=== PATIENT | female | born 1975 | race Caucasian/White ===

== ENCOUNTER 2024-09-19 11:37 | Outpatient (CLI) | payer OTHER, SELFPAY ==
--- NOTE | 2024-09-19 11:30 | ECG_ITS ---
Test Date: 2024-09-19 12:14:58 Measurements Intervals [place] Rate: 41 P: 15 WY: 152 QRS: -13 QRSD: 89 T: -4 QT: 388 QTc: 321 Interpretive Statements SINUS BRADYCARDIA WITH MARKED RHYTHM IRREGULARITY, POSSIBLE NON-CONDUCTED PAC, SA BLOCK, AV BLOCK, OR SINUS PAUSE LOW QRS VOLTAGE IN PRECORDIAL LEADS [QRS DEFLECTION < 1.0 mV IN CHEST LEADS] MODERATE VOLTAGE CRITERIA FOR LVH, CONSIDER NORMAL VARIANT [MEETS CRITERIA IN ONE OF: R(aVL), S(V1), R(V5), R(V5/V6)+S(V1)] POSSIBLE ANTERIOR MYOCARDIAL INFARCTION [30 ms Q WAVE IN V3/V4, OR R < 0.2 mV IN V4], OF INDETERMINATE AGE WARNING: DATA QUALITY MAY AFFECT INTERPRETATION No previous ECG available for comparison Electronically Signed On 09-19-2024 15:33:37 JV BASEBALL COACH by Bernard Ayon M.D.
[2024-09-19 12:24] LABS: Basophils Absolute Auto 0.1 K/mm3 (0.0-0.1); Basophils Percent Auto 0.9 % (0.2-1.2); Eosinophils Absolute Auto 0.1 K/mm3 (0-0.3); Eosinophils Percent Auto 0.9 % (0-4.4); Hematocrit 42.7 % (37.0-47.0); Hemoglobin 13.9 g/dL (12.0-15.0); Immature Granulocyte Absolute 0.04 K/mm3 (0.00-0.031); Immature Granulocyte Percent A 0.5 % (0-0.5); Lymphocytes Absolute Auto 2.15 K/mm3 (0.9-3.2); Lymphocytes Percent Auto 27.5 % (18.3-44.2); Mean Corpuscular HGB Conc 32.6 g/dl (32-36); Mean Corpuscular Hemoglobin 31.1 pg (26-34); Mean Corpuscular Volume 95.5 fl (80-100); Mean Platelet Volume 10.5 fl (7.4-10.4); Monocytes Absolute Auto 0.4 K/mm3 (0.1-0.6); Monocytes Percent Auto 5.6 % (2.6-8.5); Neutrophils Absolute Auto 5.1 K/mm3 (1.3-6.7); Neutrophils Percent Auto 64.6 % (45.5-73.1); Platelet Count Result 275 k/mm3 (150-375); Red Blood Count 4.47 M/mm3 (4.2-5.4); Red Cell Distribution Width 14.4 % (11.5-14.5); White Blood Count 7.8 K/mm3 (4.5-10.0)
[2024-09-19 12:38] LABS: Albumin Level 4.2 g/dL (3.5-5.1); Anion Gap 7 mmol/L (4-12); Blood Urea Nitrogen 17 mg/dL (7-17); Calcium 8.9 mg/dL (8.4-10.2); Carbon Dioxide 28 mmol/L (22-30); Chloride 104 mmol/L (98-107); Estimated Glomerular Filt Rate > 60; Glucose 92 mg/dL (65-110); Potassium 4.3 mmol/L (3.4-5.0); Sodium 139 mmol/L (137-145)
[2024-09-19 15:17] LABS: Iron 106 ug/dL (37-170)
[2024-09-19 17:02] LABS: Prealbumin 34.3 mg/dL (17.6-36.0)
[2024-09-19 19:39] LABS: Hemoglobin A1C 5.7 % (<5.7)
[2024-09-23 10:24] LABS: Vitamin B1 10 nmol/L (8-30)
== END 2024-09-19 11:38 | disposition home or self-care (01) ==
PROVIDERS: PCP Family Medicine; Visit Provider Surgery Plastic and Reconstructive Surgery
DX: Z01.810 Encounter for preprocedural cardiovascular examination (principal); R94.31 Abnormal electrocardiogram [ECG] [EKG]; E11.9 Type 2 diabetes mellitus without complications; L57.4 Cutis laxa senilis
CPT/HCPCS: 36415; 80048; 82040; 83036; 83540; 84134; 84425; 85025; 93005

== ENCOUNTER 2024-11-14 00:22 | Day surgery (SDC) | payer OTHER, SELFPAY ==
[2024-09-18 13:36] VITALS: BMI 30.6
--- NOTE | 2024-09-18 13:46 | PC.NURSE ---
Addendum entered by Jermain Whittaker RN 11/02/24 14:45: Patient reports no changes since preop interview. Informed to be here at 0600 on 11-14-2024 for surgery at 0730. Knows to stop vitamins and supplements on 11-11-2024. Original Note: Report to the Outpatient Waiting Room, entrance under the green pavilion located off [facility], at time _0700_ on date _[id number]_. Planned Procedure Time: _0900_.? Time changes happen often and if your time is changed the preop area will call you the afternoon before. - You and your visitor will be asked to self-screen and do not enter if you have any COVID symptoms. Please call surgeon if you need to reschedule. - A mask is optional within the hospital at this time. Patients may have clear liquids (water, carbonated beverages, clear teas, apple juice) until 3 hours prior to surgery with a maximum of 20 ounces. - No food from midnight until time of surgery and no smoking. This includes no chewing gum, candy or mints. Take only the following medications with a SIP of water on the morning of surgery: ___None DO NOT STOP ANY OF YOUR OTHER PRESCRIPTION MEDICATIONS PRIOR TO SURGERY EXCEPT THE FOLLOWING Medications to discontinue per physician __Vitamins and supplements___ Date to take last zxcq___[phone]____ Please no make-up, nail mozambican, hairspray, perfume, deodorant, or body powder the day of surgery.? No jewelry (including any body piercings) or valuables the day of surgery, leave them at home.? Please take a shower or bath the night before, or the morning of, surgery with an antibacterial soap.? Wear comfortable, loose fitting clothing.? - Jewelry must be removed prior to entering the operating room.? Rings and piercings that are not removed may be cut off. - The hospital will not accept responsibility for valuables.? - Please leave all valuables, including medications, at home the day of surgery. If you are going home after surgery, a licensed chain saw driver must drive you home.? - NO public transportation without another adult if you receive anesthesia. - We recommend that an adult stay with you for 24 hours following discharge. - We also recommend that you do not drive, make important decision, drink alcoholic beverages, or take any drugs that were not prescribed by your health care provider for at least 24 hours after your discharge time. Follow any additional instructions given to you from your surgeon. Telephone instructions given to __Delia__and asked if any additional questions and then verbalized understanding. Patient advised to call surgeon office or pre surgery nurse liaison [phone] if any additional questions.
[2024-11-14] VITALS (12 sets, daily range): BP systolic 112–145; BP diastolic 71–91; PULSE 70–97; RESP 14–20; TEMP 36.8–36.9; O2SAT 99–100; BMI 31.3
--- OUTSIDE RECORDS SUMMARY | 2024-11-14 00:24 | XMS_ITS | Clinical Summary ---
Author Organization [facility] Address [facility] [place] [address] Care Team Providers Care Ammonium Sulfate Operator Name Role Phone Don Huffman MD Primary Care Provider [phone] Social History Tobacco Use Types Packs/Day Years Used Date Smoking Tobacco: Never Assessed Comments Unknown Sex and Gender Information Value Date Recorded Sex Assigned at Not on file Legal Sex Female 1:01 PM CDT Gender Identity Not on file Sexual Orientation Not on file Plan of Treatment Health Maintenance Due Date Last Done Comments Colorectal Cancer Screening Colonoscopy (10 Years) 1973 Annual Physical 1976 Hepatitis C 1991 DTaP, Tdap and Td Vaccines ( 1 - Tdap) 1992 Hepatitis B Vaccines (1 of 3 - 19+ 3-dose series) 1992 Cervical Cancer Screening Pa p with HPV Testing (Age 30 to 64) Every 5 Years 2003 Zoster Vaccines (1 of 2) 2023 COVID-19 Vaccine (2023-2 5 season) 2024 06/22/2021, 06/01/2021 Influenza Adult (#1) 2024 Mammogram Screening 04/14/2026 04/14/2024 Cervical Cancer Screening Pa p Smear (Age 30 to 64) Every 3 Years 08/11/2027 08/11/2024, 02/02/2024, 08/13/2021 Cervical Cancer Screening wi th HPV 08/11/2027 Meningococcal B Vaccine Aged Out No l onger eligible based on patient's age to complete this topic Meningococcal Vaccine Aged Out No whit lida eligible based on patient's age to complete this topic Pneumococcal Vaccine: Pediatrics (0 to 5 Years) and At-Risk Patients (6 to 64 Years) Aged Out No longer eligible b ased on patient's age to complete this topic RSV Immunizations Under 20 Months Aged Out No longer eligible b ased on patient's age to complete this topic Insurance [facility] Care Teams Ammonium Sulfate Operator Relationship Specialty Start Date End Date Don Huffman MD [address] [place] [address] [address] [place] [id number] PCP - General FAMILY PRACTICE 03/15/19
--- OUTSIDE RECORDS SUMMARY | 2024-11-14 00:25 | XMS_ITS | Clinical Summary ---
Author Organization [facility] Address [address] [place] [address] Care Team Providers Care Exercise Scientist Name Role Phone Don Huffman MD Primary Care Provider [phone] Allergies No known active allergies Medications No known medications Active Problems No known active problems Encounters Date Type Department Care Team Description 11/11/2024 External Device Data [facility] ABSTRACTION Provider, Abstract 11/10/2024 External Device Data [facility] Provider, Abstract 11/07/2024 External Device Data [facility] Provider, Abstract 10/24/2024 External Device Data [facility] Provider, Abstract 10/02/2024 Telephone [facility] - [address] [facility] [address] [address] [facility] [address] [place] [address] Don Huffman MD new pt appt; 1st call, LMOR 10/02/24 10/02/2024 Abstract [facility] - [address] [facility] [address] [address] [facility] [address] [place] [address] Provider, Abstract 09/27/2024 External Device Data [facility]STRACTION Provider, Abstract 09/27/2024 External Device Data [facility] Provider, Abstract 09/20/2024 External Device Data [facility]CTION Provider, Abstract from Last 3 Months Social History Tobacco Use Types Packs/Day Years Used Date Smoking Tobacco: Never Smokeless Tobacco: Never Alcohol Use Standard Drinks/Week Comments Never 0 (1 standard drink = 0.6 oz pur e alcohol) Comments No Sex and Gender Information Value Date Recorded Sex Assigned at Not on file Legal Sex Female 1:16 PM COAL DELIVERER Gender Identity Not on file Sexual Orientation Not on file Last Filed Vital Signs Vital Sign Reading Time Taken Comments Blood Pressure 133/93 08/12/2020 2:55 PM COAL DELIVERER Pulse 66 08/12/2020 2:55 PM COAL DELIVERER Temperature 36.7 C (98.1 F) 08/12/2020 2:55 PM COAL DELIVERER Respiratory Rate 16 08/12/2020 2:55 PM COAL DELIVERER Oxygen Saturation 97% 08/12/2020 2:55 PM COAL DELIVERER Inhaled Oxygen Concentration - - Weight 95.3 kg (210 lb) 08/12/2020 2:55 PM COAL DELIVERER Height 170.2 cm (5' 7 ) 08/12/2020 2:55 PM COAL DELIVERER Body Mass Index 32.89 08/12/2020 2:55 PM COAL DELIVERER Plan of Treatment Health Maintenance Due Date Last Done Comments DTAP/TDAP/TD VACCINES (1 - Tdap) 1992 HEPATITIS B VACCINES (1 of 3 - 19+ 3-dose series) 1992 CERVICAL CANCER SCREENING 2003 COLORECTAL SCREENING 2018 Colorectal Cancer Screening 2018 FIT-DNA Q 3 years 2018 FIT/FOBT Q 1 year 2018 Flex Sig/CT Colonography Q 5 years 2018 BREAST CANCER SCREENING 01/16/2023 01/16/2022 ZOSTER VACCINE (1 of 2) 2023 INFLUENZA VACCINE (#1) 2024 COVID-19 Vaccine ( season) 2024, 06/01/2021 Insurance HMO [employer] NETWORK [facility] [id number] Care Teams Exercise Scientist Relationship Specialty Start Date End Date Don Huffman MD [address] [place] [address] [address] [place] [address] PCP - General Family Practice 10/02/24
--- OUTSIDE RECORDS SUMMARY | 2024-11-14 00:25 | XMS_ITS | Clinical Summary ---
Author Organization [facility] Address [address] [place] [address] Care Team Providers Care Director Of Business Services Name Role Phone Unavailable Primary Care Provider Unavailabl e Immunizations Immunization Administration Dates Next Due Covid-19, Mrna, Lnp-s, Pf, 30 Mcg/0.3 Ml Dose (P fizer) 06/22/2021,06/01/2021 Social History Tobacco Use Types Packs/Day Years Used Date Smoking Tobacco: Never Assessed Comments Unknown Sex and Gender Information Value Date Recorded Sex Assigned at Not on file Legal Sex Female 3:47 PM CDT Gender Identity Not on file Sexual Orientation Not on file Plan of Treatment Health Maintenance Due Date Last Done Comments Hepatitis C Virus (HCV) Screening 1973 TdaP Immunization 1973 Hepatitis B Immunization (1 of 3 - 19+ 3-dose series) 1992 Pap Smear 1994 Cervical Cancer Screening (CCS) 2003 HPV/Cotest 2003 Colonoscopy 2018 Colorectal Cancer Screening 2018 Cologuard 2023 Immunochemical Fecal Occult Blood 2023 Mammogram 2023 Pneumococcal Immunization (5 0+ years) (1 of 1 - PCV) 2023 Zoster Immunization (1 of 2) 2023 Influenza Immunization (#1) 2024 SARS-COV-2 Immunization (2 - 2023- season) 2024 06/22/2021, 06/01/2021 Respiratory Syncytial Virus (RSV) Immunization (Adult) (1 - 1-dose 75+ series) 2048 Meningococcal Immunization (ACWY) Aged Out No longer eligible b ased on patient's age to complete this topic Pneumococcal Immunization Combined Aged Out No longer eligible b ased on patient's age to complete this topic Rotavirus Immunization Aged Out No lo nger eligible based on patient's age to complete this topic
--- OUTSIDE RECORDS SUMMARY | 2024-11-14 00:25 | XMS_ITS | Clinical Summary ---
Author Organization [facility] Address [address] [place] [address] Care Team Providers Care Volunteer Services Specialist Name Role Phone Unavailable Primary Care Provider Unavailabl e Source Comments [facility],non-owned Affiliates and Associated Physician Practices is amultiple site organization consisting of ambulatory clinics and hospital sitesin [place], [place], [place] and [place]. This disclosure is being madepursuant to the Care Everywhere program and may not contain all information available regarding this patient. Last updated 18.[facility] Allergies No known active allergies Social History Tobacco Use Types Packs/Day Years Used Date Smoking Tobacco: Never Assessed Sex and Gender Information Value Date Recorded Sex Assigned at Not on file Gender Identity Not on file Sexual Orientation Not on file Plan of Treatment Health Maintenance Due Date Last Done Comments COLOGUARD (AGES 45-75) - COL ON CA SCREENING 1973 COLON MONITORING 1973 COLONOSCOPY - COLON CA SCREENING 1973 CT COLONOGRAPHY - COLON CA SCREENING 1973 Colorectal Cancer Screening 1973 FIT - COLON CA SCREENING 1973 FLEX SIG - COLON CA SCREENING 1973 LIPID TESTING 1973 MAMMOGRAM 1973 PAP SMEAR 1973 HIV SCREENING 1988 HEPATITIS C SCREENING 09/27/1991 DTAP/TDAP/TD VACCINES (1 - Tdap) 1992 HEPATITIS B VACCINE (1 of 3 - 19+ 3-dose series) 1992 PNEUMOCOCCAL VACCINE 50+ (1 of 1 - PCV) 2023 ZOSTER VACCINE (1 of 2) 2023 COVID-19 VACCINE (1 - 2023-2 5 season) 2024 INFLUENZA VACCINE (#1) 2024 DEPRESSION SCREENING 09/06/2024 HIB VACCINE Aged Out No longer eligi ble based on patient's age to complete this topic HPV VACCINE Aged Out No longer eligi ble based on patient's age to complete this topic MENINGOCOCCAL (Group B) VACCINE Aged Out No longer eligible based on patient's age to complete this topic MENINGOCOCCAL VACCINE Aged Out No whit lida eligible based on patient's age to complete this topic
--- OUTSIDE RECORDS SUMMARY | 2024-11-14 00:25 | XMS_ITS | Referral Summary ---
Author Organization [facility] Address [address] [place] [phone] Care Team Providers Care Principal Gifts Officer Name Role Phone Don Huffman MD Primary Care Provider [phone] Don Lopez DPM Unavailable [phone] Encounters Date Type Department Care Team Description 09/21/2024 Telephone [facility] Obstetrical Gynecology [address] [place] [phone] Pati Yeh LPN 09/13/2024 11:30 AM DATA ENGINEER Office Visit [facility] Obstetrical Gynecology [address] [place] [address] [place] [phone] Remy Baeza MD Low grade squamous intraepith lesion on cytologic smear cervix (lgsil) (Primary Dx); High risk HPV infection 09/07/2024 Telephone [facility] Obstetrical Gynecology [address] [place] [phone] Remy Baeza MD 09/01/2024 Telephone [facility] Obstetrical Gynecology [address] [place] [phone] Remy Baeza MD from Last 3 Months Allergies No known active allergies Medications sertraline (ZOLOFT) 50 mg tablet Take 1 tablet (50 mg total) by mouth every other day Active losartan (COZAAR) 50 mg tablet Take 1 tablet (50 mg total) by mouth daily 4 Active Eusebia 0.05 mg/24 hr APPLY 1 PATCH topcially TO stomach, upper arm, OR buttocks twice weekly 4 Active progesterone (PROMETRIUM) 100 mg capsule Take 1 capsule (100 mg total) by mouth nightly 4 Active testosterone 50 mg/5 gram (1 %) Place on the skin Active metFORMIN (GLUCOPHAGE) 500 mg tablet 4 Active enoxaparin (LOVENOX) 40 mg/0.4 mL syringe 5 Active ondansetron (ZOFRAN) 4 mg tablet 5 Active oxyCODONE-aceta minophen (PERCOCET) 5-325 mg per tablet 5 Active Active Problems No known active problems Social History Tobacco Use Types Packs/Day Years Used Date Smoking Tobacco: Never Smokeless Tobacco: Never Tobacco Cessation:Counseling Given: Not Answered AUDIT-C Answer Date Recorded Q1: How often do you have a drink containing alc ohol? 2-3 times a week 07/22/2022 Q2: How many drinks containi ng alcohol do you have on a typical day when you are drinking? 1 or 2 07/22/2022 Q3: How often do you have si x or more drinks on one occasion? Less than monthly 07/22/2022 Comments No Sex and Gender Information Value Date Recorded Sex Assigned at Not on file Legal Sex Female 8:48 AM DATA ENGINEER Gender Identity Not on file Sexual Orientation Not on file Last Filed Vital Signs Vital Sign Reading Time Taken Comments Blood Pressure 118/64 09/13/2024 11:51 AM DATA ENGINEER Pulse 63 07/22/2022 10:09 AM DATA ENGINEER Temperature 36.7 C (98 F) 07/22/2022 9:43 AM DATA ENGINEER Respiratory Rate 18 07/22/2022 10:09 AM DATA ENGINEER Oxygen Saturation 96% 07/22/2022 10:09 AM DATA ENGINEER Inhaled Oxygen Concentration - - Weight 92.5 kg (204 lb) 09/13/2024 11:51 AM DATA ENGINEER Height 170.2 cm (5' 7 ) 09/13/2024 11:51 AM DATA ENGINEER Body Mass Index 31.95 09/13/2024 11:51 AM DATA ENGINEER Plan of Treatment Not on file Procedures Procedure Name Priority Date/Time Associated Diagnosis Comments HIGH RISK HPV DNA DETECTION WITH GENOTYPING Routine 08/11/2024 12:12 PM DATA ENGINEER Low grade squamous intraepith lesion on cytologic smear cervix (lgsil) SCREENING MAMMOGRAM BILATERAL W SHERRY Schedule Routine, Read Routine (OP Routine) 04/14/2024 3:58 PM CDT Encounter for screening mammogram for malignant neoplasm of breast HEPATITIS PANEL, ACUTE Routine 06/21/2015 2:31 PM CDT from Last 3 Months or Most Recently Relevant to Health Maintenance Results * (ABNORMAL) High Risk HPV DNA Detection with Genotyping (Molecular component) (08/11/2024 12:12 PM DATA ENGINEER) HPV HR 16 Detected( A) Not Detected [facility] Comment:Testing performed by : [facility], [address] [place] [address]., [address] HPV HR 18 Detected( A) Not Detected [facility] Comment:Testing performed by : [facility], [address] [place]., [address] HPV HR Non 16/18 Detected( A) Not Detected [facility] Comment: Interpretive Data Nucleic acid amplification for detection of high-risk Human Papilloma virus (HPV) is performed by the Monica Tae 6800 HPV test. This assay specifically detects HPV-16 and HPV-18 genotypes. The following HPV genotypes are detected as high-risk HPV: HPV-31, 33, 35, ,39, 45, 51, 52, 56, 58, 59, 66, and 68. This assay has been approved by the [place] Food and Drug Administration for detection of HPV in cervical specimens collected by a physician using an endocervical brush/spatula or cervical broom and placed in the ThinPrep Pap Test PreservCyt collection containers. The performance characteristics of this test have been verified by the [facility] Molecular Infectious Disease laboratory. Correlate with separately reported cytology results, as applicable. Interpretive data last revised 23 Testing performed by: [facility], [address] [place]., [address] Endocervical 08/11/2024 12:1 2 PM DATA ENGINEER 08/11/2024 5:41 PM DATA ENGINEER Narrative [facility] - 08/12/2024 12:19 AM DATA ENGINEER Clinical history and diagnosis->LSIL Number of vials->1 Testing type->Diagnostic Last menstrual period (date if known)->PM Menstrual status->Postmenopausal Contraceptive use->None Previous positive HPV history?->Yes Date of positive HPV->02/2024 Previous negative PAP?->No Previous atypical cytology->LGSIL Remy Baeza MD LAB BODY FLUIDS AND STO OLS ORDERABLES Final Result [facility] [address] [facility] Department [place] [address] [facility] * Screening Mammogram Bilateral W Sherry (04/14/2024 3:58 PM CDT) Anatomical Region Laterality Modality Breast Bilateral Mammography Impressions 04/14/2024 4:04 PM CDT BI-RADS ATLAS category (overall): 1 - Negative There is no mammographic evidence of malignancy. A 1 year screening mammogram is recommended. The patient has been or will be contacted. We recommend annual screening mammography for women at average risk of breast cancer beginning at age 40, based on guidelines of the [place] [employer] (ACR Practice Parameter for the Performance of Screening and Diagnostic Mammography) and [place] [employer]. For women with and elevated risk of breast cancer, please refer to the ACR Practice Parameter for specific screening recommendations. The patient will be entered into a reminder system with a target due date of 1 year for her next screening exam. Narrative 04/14/2024 4:04 PM CDT Screening Mammogram Bilateral W Sherry: 04/14/24 The study was acquired using full field digital technology and interpreted from soft copy. 2D digital mammographic views, as well as 3D digital tomosynthesis were performed in the CC and MLO projections. CLINICAL: Encounter for screening mammogram for malignant neoplasm of breast. No relevant medical history has been documented for this patient. History of breast cancer in Neg Hx. COMPARISONS: 01/16/2022 Screening Mammogram Bilateral W Sherry BREAST TISSUE: The breasts have scattered areas of fibroglandular density. FINDINGS: There is no new suspicious finding in either breast on mammogram. Remy Baeza MD IMG MAMMO PROCEDURES Fi nal Result * Hepatitis panel, acute (06/21/2015 2:31 PM CDT) HepBsAg NONREACT NONREACTIVE 06/21/2015 3:57 PM CDT [facility] [employer] HISTORICAL RESULTS Comment: Siemens CentaurXP using CHAD (chemiluminescent immunoassay) technology. NONREACTIVE: IgM antibodies to Hepatitis B Surface antigen not detected. REACTIVE: IgM antibodies to Hepatitis B Surface antigen detected. Reactive results will be confirmed by neutralization testing. HBsAb (immune status) NONREACT NONREACTIVE 06/21/2015 3:46 PM CDT [facility] [employer] HISTORICAL RESULTS Comment: Siemens CentaurXP using CHAD (chemiluminescent immunoassay) technology. NONREACTIVE: IgM antibodies to Hepatitis B Surface antibody not detected. REACTIVE: IgM antibodies to Hepatitis B Surface antibody detected. Hep B core IgM NONREACT NONREACTIVE 5 4:25 PM CDT [facility] [employer] HISTORICAL RESULTS Comment: Siemens CentaurXP using CHAD (chemiluminescent immunoassay) technology. NONREACTIVE: IgM antibodies to Hepatitis B Core antigen not detected. EQUIVOCAL: IgM antibodies to Hepatitis B Core antigen may or may not be present. Obtain a new specimen and retest. REACTIVE: IgM antibodies to Hepatitis B Core antigen detected. Hep A IgM NONREACT NONREACTIVE 06/21/2015 4:27 PM CDT [facility] [employer] HISTORICAL RESULTS Comment: Siemens CentaurXP using CHAD (chemiluminescent immunoassay) technology. NONREACTIVE: IgM antibodies to Hepatitis A not detected. This does not exclude possibility of exposure to Hepatitis A or early acute infection. EQUIVOCAL:IgM antibodies to Hepatitis A may or may not be present. Suggest recollection and retest. REACTIVE: Antibodies to Hepatitis A detected. Hep C Ab NONREACT NONREACTIVE 06/21/2015 4:25 PM CDT [facility] [employer] HISTORICAL RESULTS Comment: Siemens CentaurXP using CHAD (chemiluminescent immunoassay) technology. NONREACTIVE: Antibodies to Hepatitis C not detected. This does not exclude early acute Hepatitis C infection, possibility of exposure to Hepatitis C, antibodies below detection limit, or to lack of antibody reactivity to the antigen used in this assay. EQUIVOCAL: Antibodies to Hepatitis C may or may not be present. Sample to be confirmed by real-time PCR method. REACTIVE: Antibodies to Hepatitis C detected. 06/21/2015 2:31 PM CDT 06/21/2015 3:03 PM CDT Remy Baeza MD LAB MICROBIOLOGY - GENE RAL ORDERABLES Final Result [facility] HISTORICAL RESULTS from Last 3 Months or Most Recently Relevant to Health Maintenance Insurance [employer] [place] Care Teams Principal Gifts Officer Relationship Specialty Start Date End Date Don Huffman MD [address] [place] [address] [address] [place] [address] PCP - General Family Medicine 07/04/21 Don Lopez, DPM [address] [place] [address] Consulting Physician Podiatry 07/22/22
--- OUTSIDE RECORDS SUMMARY | 2024-11-14 00:25 | XMS_ITS | Referral Summary ---
Author Organization [facility] Address [address] [place] [address] Care Team Providers Care Online Marketing Coordinator Name Role Phone Unavailable Primary Care Provider Unavailabl e Source Comments [facility],non-owned Affiliates and Associated Physician Practices is amultiple site organization consisting of ambulatory clinics and hospital sitesin [place], [place], [place] and [place]. This disclosure is being madepursuant to the Care Everywhere program and may not contain all information available regarding this patient. Last updated 18.[facility] [address] Allergies No known active allergies Social History Tobacco Use Types Packs/Day Years Used Date Smoking Tobacco: Never Assessed Sex and Gender Information Value Date Recorded Sex Assigned at Not on file Gender Identity Not on file Sexual Orientation Not on file Plan of Treatment Not on file Administered Medications
--- OUTSIDE RECORDS SUMMARY | 2024-11-14 00:25 | XMS_ITS | Encounter Summary ---
Author Organization [facility] Address [address] [place] [address] Care Team Providers Care Box Strapper Name Role Phone Don Huffman MD Primary Care Provider [phone] Encounter Details Date Type Department Care Team (Late st Contact Info) Description 11/11/2024 External Device Data ST[place] ABSTRACTION Provider, Abstract NO ADDRESS ON FILE Social History Tobacco Use Types Packs/Day Years Used Date Smoking Tobacco: Never Smokeless Tobacco: Never Alcohol Use Standard Drinks/Week Comments Never 0 (1 standard drink = 0.6 oz pur e alcohol) Comments No Sex and Gender Information Value Date Recorded Sex Assigned at Not on file Legal Sex Female 1:16 PM MANAGER TARGET Gender Identity Not on file Sexual Orientation Not on file documented as of this encounter Plan of Treatment Not on file documented as of this encounter Visit Diagnoses Not on filedocumented in this encounter Care Teams Box Strapper Relationship Specialty Start Date End Date Don Huffman MD [address] [place] [address] [address] [place] [address] PCP - General Family Practice 10/02/24 documented as of this encounter
--- OUTSIDE RECORDS SUMMARY | 2024-11-14 00:25 | XMS_ITS | Data Portability ---
Author Organization [facility] RIGOSandro Larios Address [address] [place] [address] Assessment No assessment recorded. Plan of Treatment Reminders Order Date Submit Date Provider Last Modified By Organization Details Last Modified Time Details Appointments None recorded. Lab RPR (rapid plasma reagin), serum 2024 025 [facility], [address] [place] [address], [address], [place], [address], 5 14:13:01 chlamydia trachomatis + neisseria gonorrhoeae + trichomonas vaginalis rRNA panel, CORNELIA+probe 2024 025 [facility], [address] [place] [address], [address], [place], [address], 5 14:12:59 hepatitis panel (A+B+C), acute, serum 2024 025 [facility], [address] [place] [address], [address], [place], [address], 5 14:12:57 HIV 1 + 2, meaningful use set 2024 025 [facility], [address] [place] [address], [address], [place], [address], 5 14:13:02 herpes simplex virus 1 + 2 IgG panel, serum or plasma 2024 025 [facility], [address] [facility], [address], [place], [address], 14:12:58 Referral None recorded. Procedures None recorded. Surgeries None recorded. Imaging None recorded. Medication Orders None recorded. Patient TargetsNo targets recorded. Patient Instructions Encounter Date Encounter Id Patient Instructions Last Modified By Organization Details Last Modified Time 10/03/2024 [id number] A healthy lifestyle: care instructions [email or web address] Not available 10/04/2024 17:03:40 Reason for Referral None Reported. Results Created Date Observation Date Name Description Value Unit Range Abnormal Flag Note LastModifiedBy Organization Detail LastModifiedTime 10/04/1910/05/2024 SPECI MEN STATU S REPOR T specimen status report TNP Test not perfo rmed. No serum gel recei solitario. TEST: 19372 0 Acute Hepat itis 80500 9 HSV 1 and 2 Ab, IgG 02567 5 RPR, R[place] Q[place] RPR/[place] [address] 5 HIV Ab/p2 4 Ag with Refle x Not Available [facility] ([facility]) [address] [facility], [place], [address], 10/10/2024 14:12:56 10/04/19 25 10/05/2024 ACUTE HEPAT ITIS hep A Ab, IgM - Test not perfo rmed. No serum gel recei solitario. Not Available [facility] ([facility]) [address] [facility], [place], [address], 10/10/2024 14:12:56 10/04/19 25 10/05/2024 ACUTE HEPAT ITIS HBsAg screen - Test not perfo rmed Not Available [facility] ([facility]) [address] [facility], [place], [address], 10/10/2024 14:12:56 10/04/19 25 10/05/2024 ACUTE HEPAT ITIS hep B core Ab, IgM - Test not perfo rmed Not Available [facility] ([facility]) [address] [place], [address], 10/10/2024 14:12:56 10/04/19 25 10/05/2024 ACUTE HEPAT ITIS HCV Ab - Test not perfo rmed Not Available [facility] ([facility]) [address] [place], [address], 10/10/2024 14:12:56 10/04/19 25 10/05/2024 HSV 1 AND 2 AB, IGG hsv 1 IgG, type spec - Test not perfo rmed. No serum gel recei solitario. Ple ase note refer ence inter colten hansen e HSV-1 IgG testi ng perfo rmed using the [employer] HSV-1 IgG assay . Not Available [facility] ([facility]) [address] [place], [address], 10/10/2024 14:12:58 10/04/19 25 10/05/2024 HSV 1 AND 2 AB, IGG hsv 2 IgG, type spec - Test not perfo rmed Not Available [facility] ([facility]) [address] [place], [address], 10/10/2024 14:12:58 10/04/19 25 10/07/2024 CT, NG, TRICH VAG BY CORNELIA chlamydia by CORNELIA NEGATI VE negati ve Not Available [facility] ([facility]) [address] [place], [address], 10/10/2024 14:12:59 10/04/19 25 10/07/2024 CT, NG, TRICH VAG BY CORNELIA gonococcus by CORNELIA NEGATI VE negati ve Not Available [facility] ([facility]) [address] [place], [address], 10/10/2024 14:12:59 10/04/19 25 10/07/2024 CT, NG, TRICH VAG BY CORNELIA trich vag by CORNELIA NEGATI VE negati ve Not Available [facility] ([facility]) [address] [place], [address], 10/10/2024 14:12:59 10/04/19 25 10/05/2024 RPR, RFX QN RPR/C ONFIR M TP RPR - Test not perfo rmed. No serum gel recei solitario. Not Available [facility] ([facility]) [address] [facility], [place], [address], 10/10/2024 14:13:01 10/04/19 25 10/05/2024 HIV AB/P2 4 AG WITH REFLE X HIV Ab/P24 Ag screen - Test not perfo rmed. No serum gel recei solitario. Not Available [facility] ([facility]) [address] [facility], [place], [address], 10/10/2024 14:13:02 Result Notes None recorded. Medical Equipment None Reported. Allergies No known drug allergies Medications Name Sig Start Date Stop Date Status Note LastModified by Organization Details LastModified Time losartan 50 mg tablet TAKE ONE TABLET BY MOUTH EVERY DAY active Not Available Not Available No t Available carisoprodol 350 mg tablet TAKE ONE TABLET BY MOUTH EVERY 8 HOURS NEEDED FOR PAIN OR FOR MUSCLE SPASMS active Not Available Not Available No t Available celecoxib 200 mg capsule TAKE ONE CAPSULE BY MOUTH TWICE DAILY start DAY BEFORE surgery active Not Available Not Available No t Available metformin 500 mg tablet TAKE ONE TABLET BY MOUTH EVERY DAY with a meal active Not Available Not Available No t Available prednisone 10 mg tablet TAKE ONE TABLET BY MOUTH TWICE DAILY FOR 10 DAYS active Not Available Not Available No t Available ibuprofen 800 mg tablet TAKE ONE TABLET BY MOUTH EVERY 6 HOURS NEEDED FOR PAIN active Not Available Not Available No t Available hydrocodone 5 mg-acetamino phen 325 mg tablet TAKE ONE TABLET BY MOUTH EVERY 4 HOURS FOR 7 DAYS active Not Available Not Available No t Available meloxicam 15 mg tablet TAKE ONE TABLET BY MOUTH EVERY DAY active Not Available Not Available No t Available ondansetron HCl 4 mg tablet TAKE ONE TABLET BY MOUTH EVERY 6 HOURS NEEDED FOR NAUSEA active Not Available Not Available No t Available prednisone 20 mg tablet TAKE THREE TABLETS DAILY FOR THREE DAYS THEN TWO TABLETS DAILY FOR THREE DAYS THEN ONE TABLET DAILY FOR THREE DAYS active Not Available Not Available N ot Available sertraline 100 mg tablet take one Tablet by mouth once a day active Not Available Not Available No t Available estradiol 0.05 mg/24 hr semiweekly transdermal patch APPLY 1 PATCH TO stomach, upper arm, OR buttocks twice weekly active Not Available Not Available No t Available oxycodone-ac etaminophen 5 mg-325 mg tablet TAKE ONE TABLET BY MOUTH EVERY 6 HOURS NEEDED FOR PAIN active Not Available Not Available No t Available docusate sodium 100 mg capsule TAKE ONE CAPSULE BY MOUTH TWICE DAILY active Not Available Not Available No t Available gabapentin 300 mg capsule TAKE ONE CAPSULE BY MOUTH THREE TIMES DAILY active Not Available Not Available Not Available progesterone micronized 100 mg capsule TAKE ONE CAPSULE BY MOUTH AT BEDTIME active Not Available Not Available No t Available enoxaparin 40 mg/0.4 mL subcutaneous syringe INJECT 0.4 ML SUBCUTANEOU SLY ONCE DAILY active Not Available Not Available No t Available tadalafil 5 mg tablet TAKE ONE TABLET BY MOUTH AT BEDTIME active Not Available Not Available No t Available Vitals Date Recorded Body height Body mass index (BMI) Body weight Body temperature Heart rate Oxygen saturation Oxygen saturation in Arterial blood by Pulse oximetry Systolic blood pressure Diastolic blood pressure Provider Name and Address Organization Details Last Updated DateTime 170.18 cm 31.2 kg/m2 90141.8 8 g 97.9 [degF] 56 /min 98 % 98 % 134 mm[Hg] 80 mm[Hg] Aurelia Estradaer [facility] 14:13:26 Social History Question Answer Notes LastModified by Organizat ion Details LastModified Time Tobacco Smoking Status Never [facility]oker [facility] 10/03/2024 14:07:40 What Was The Date Of Your Most Recent Tobacco Screening? 10/03/2024 [email or web address] Information not available 10/03/2024 Sex: Unknown Functional Status None recorded. Mental Status None recorded. Family History Nothing Reported. Medical History No medical history recorded. Gynecological HistoryNo gynecological history recorded. Obstetrics History GPAL:G 0 P 0 0 0 0 Past Encounters Encounter ID Performer Location Encounter Start Date Encounter Closed Date Diagnosis/Indication Diagnosis SNOMED-CT Code Diagnosis ICD10 Code Diagnosis Note [id number] Edna Vickers, FOREST ECOLOGY PROFESSOR-BC [facility] ([address]) [address] [facility] [place] [address] 10/03/2024 13:57:09 10/05/2024 10:08:06 Venereal disease screening 330452519 Z11.3 safe sex encouraged f/u as needed w/ PCPlab pending. will tailor treatment accordingl y upon receipt.de clined condoms Obesity 682188479 E66.9 Health Concerns Section Related Observation LastModified by Organization Detai ls LastModified Time None Recorded Concern Status LastModified by Organization Details LastModified Time None Recorded Advance Directives Directive None Recorded Payers Encounter Date Sequence Insurance Name Policy Number Policy Petit Covered Member ID Petit Member ID Guarantor Name 10/03/2024 1 [facility]: (PPO) [id number] Delia Truongleilani [id number] Delia Rivers Notes Date Note Type Note Provider Name and Address Organization Details Recorded Time 10/03/2024 text/html Pt presents to clinic requesting STI testing. She reports 6 male sex partners within the past 6 mo. Pt denies nausea, vomiting, fever, chills, rash, cough, CP, SOB, AZEVEDO, lower abdominal discomfort, vaginal dc, diarrhea, constipation and dysuria. Edna Vickers FOREST ECOLOGY PROFESSOR- Attn: Accounting[address] [facility], [place], [address], [facility] 10/04/2024 17:03:43 OBGyn Episode No OBEpisode recorded.
--- OUTSIDE RECORDS SUMMARY | 2024-11-14 00:25 | XMS_ITS | Encounter Summary ---
Author Organization [facility] Care Team Providers Care Safety Deposit Clerk Name Role Phone Unknown, Notinfile Primary Care Provider Unavail able Don Huffman MD Primary Care Provider [phone] Don Lopez DPM Unavailable [phone] Encounter Details Date Type Department Care Team (Latest Contact Info) Description 06/21/2015 Orders Only [facility] CLINCONV ProviderDenise MD [address] [place] [address] Social History Tobacco Use Types Packs/Day Years Used Date Smoking Tobacco: Never Assessed Comments Unknown Sex and Gender Information Value Date Recorded Sex Assigned at Not on file Legal 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 Historical Provider Final Res ult * SCAN - LABS (07/04/2015 12:00 AM CDT) Narrative 07/04/2015 12:00 AM CDT Ordered by an unspecified provider. us Historical Provider Final Res ult * SCAN - LABS (06/21/2015 12:00 AM CDT) Narrative 06/21/2015 12:00 AM CDT Ordered by an unspecified provider. us Historical Provider Final Res ult documented in this encounter Visit Diagnoses Not on filedocumented in this encounter Care Teams Safety Deposit Clerk Relationship Specialty Start Date End Date Unknown, Notinfile PCP - General 01/11/18 07/03/21 Don Huffman MD [address] [place] [address] [address] [place] [address] PCP - General Family Medicine 07/04/21 Don Lopez, DPM [address] [facility] [place] [address] Consulting Physician Podiatry 07/22/22 documented as of this encounter
--- OUTSIDE RECORDS SUMMARY | 2024-11-14 00:25 | XMS_ITS | Clinical Summary ---
Author Organization [facility] Address [address] [place] [address] Care Team Providers Care Floor Mechanic Name Role Phone Don Huffman MD Primary Care Provider [phone] Don Lopez DPM Unavailable [phone] Allergies No known active allergies Medications sertraline (ZOLOFT) 50 mg tablet Take 1 tablet (50 mg total) by mouth every other day 1 Active losartan (COZAAR) 50 mg tablet Take [...] Active Active Problems No known active problems Encounters Date Type Department Care Team Description 09/21/[address] [facility] Obstetrical Gynecology [address] [place] [phone] Pati Yeh LPN 09/13/2024 11:30 AM GENERATION ENGINEERING TECHNOLOGIST Office Visit [facility] Medical [facility] Obstetrical Gynecology [address] [facility] [address] [place] [address] Remy Baeza MD Low grade squamous intraepith lesion on cytologic smear cervix (lgsil) (Primary Dx); High risk HPV infection 09/07/2024 Telephone [facility] Obstetrical Gynecology [address] [facility] [address] [place] [address] Remy Baeza MD 09/01/2024 Telephone [facility] Obstetrical Gynecology [address] [facility] [place] [address] Remy Baeza MD from Last 3 Months Surgical History Surgery Date Site/Laterality Comments TUBAL LIGATION ENDOMETRIAL ABLATION VAGINAL DELIVERY x 2 SECTION x 1 set of twins PLANTAR FASCIA SURGERY Left TONSILLECTOMY LUMBAR FUSION 12/01/2023 Medical History Medical History Date Comments Hypertension Anxiety Family History Medical History Relation Name Comments Cancer Father Diabetes Father Hypertension Father Hypertension Maternal Grandfather Hypertension Maternal Grandmother Diabetes Paternal Grandfather Diabetes Paternal Grandmother Breast cancer Neg Hx Ovarian cancer Neg Hx Relation Name Status Comments Father Maternal Grandfather Maternal Grandmother Paternal Grandfather Paternal Grandmother Social History Tobacco Use Types Packs/Day Years [...] on file Legal Sex Female 8:48 AM GENERATION ENGINEERING TECHNOLOGIST Gender Identity Not on file Sexual Orientation Not on file Obstetrics History Para Term AB IAB SAB Ectopic Multiple Livin g Live Births 3 3 3 4 Date Outcome GA Total Labor Labor/2nd/3rd Weight Sex Type Anes PTL Sofia A1 A5 Name Clin Term Term Term Comments - unsure age of ovidio Last Filed Vital Signs Vital Sign Reading Time Taken Comments Blood Pressure 118/64 09/13/2024 11:51 AM GENERATION ENGINEERING TECHNOLOGIST Pulse 63 07/22/2022 10:09 AM GENERATION ENGINEERING TECHNOLOGIST Temperature 36.7 C (98 F) 07/22/2022 9:43 AM GENERATION ENGINEERING TECHNOLOGIST Respiratory Rate 18 07/22/2022 10:09 AM GENERATION ENGINEERING TECHNOLOGIST Oxygen Saturation 96% 07/22/2022 10:09 AM GENERATION ENGINEERING TECHNOLOGIST Inhaled Oxygen Concentration - - Weight 92.5 kg (204 lb) 09/13/2024 11:51 AM GENERATION ENGINEERING TECHNOLOGIST Height 170.2 cm (5' 7 ) 09/13/2024 11:51 AM GENERATION ENGINEERING TECHNOLOGIST Body Mass Index 31.95 09/13/2024 11:51 AM GENERATION ENGINEERING TECHNOLOGIST Plan of Treatment Health Maintenance Due Date Last Done Comments Colon Cancer Screening-Colonoscopy 1973 Depression Screening 1973 DTaP/Tdap/Td Vaccine (1 - Tdap) 1984 Hepatitis B Screening 1991 Zoster Vaccine (1 of 2) 2023 Covid-19 Vaccine (3 - season) 2024 06/22/2021, 06/01/2021 Influenza Vaccine (#1) 2024 Regular Well Visit/Exam 18-64 02/01/2025 02/02/2024, 08/13/2021 Breast Cancer Screening-Mammogram 04/14/2025 04/14/2024, 01/16/2022, 01/16/2022 Cervical Cancer Screening 08/11/20252023, 08/11/2024, 02/02/2024, Additional history exists Hepatitis C Screening Completed 06/21/2015 Pneumococcal vaccine <65 Aged Out No longer eligible based on patient's age to complete this topic Procedures Procedure Name Priority Date/Time Associated Diagnosis Comments HIGH RISK HPV DNA DETECTION WITH GENOTYPING Routine 08/11/2024 12:12 PM GENERATION ENGINEERING TECHNOLOGIST Low grade squamous intraepith lesion on cytologic smear cervix (lgsil) SCREENING MAMMOGRAM BILATERAL W BOBBY Schedule Routine, Read Routine (OP Routine) 04/14/2024 3:58 PM CDT Encounter for screening mammogram for malignant neoplasm of breast HEPATITIS PANEL, ACUTE Routine 06/21/2015 2:31 PM CDT from Last 3 Months or Most Recently Relevant to Health Maintenance Results * (ABNORMAL) High Risk HPV DNA Detection with Genotyping (Molecular component) (08/11/2024 12:12 PM GENERATION ENGINEERING TECHNOLOGIST) HPV HR 16 Detected( A) Not Detected [facility] Comment:Testing performed by : [facility], [address] [place]., [address] HPV HR 18 Detected( A) Not Detected [facility] Comment:Testing performed by : [facility], [address] [place]., [address] HPV HR Non 16/18 Detected( A) Not Detected [facility] Comment: Interpretive Data Nucleic acid amplification for [...] this test have been verified by the [facility] Molecular Infectious Disease laboratory. Correlate with separately reported cytology results, as applicable. Interpretive data last revised 23 Testing performed by: [facility], [address] [place]., [address] Endocervical 08/11/2024 12:1 2 PM GENERATION ENGINEERING TECHNOLOGIST 08/11/2024 5:41 PM GENERATION ENGINEERING TECHNOLOGIST [facility] - 08/12/2024 12:19 AM GENERATION ENGINEERING TECHNOLOGIST Clinical history and diagnosis->LSIL Number of vials->1 Testing type->Diagnostic Last menstrual period (date if known)->PM Menstrual status->Postmenopausal Contraceptive use->None Previous positive HPV history?->Yes Date of positive HPV->02/2024 Previous negative PAP?->No Previous atypical cytology->LGSIL us Remy Baeza MD LAB BODY FLUIDS AND STO OLS ORDERABLES Final Result [facility] [address] [address] [facility] [place] [address] BJ * Screening Mammogram Bilateral W Bobby (04/14/2024 3:58 PM CDT) Anatomical Region Laterality [...] age 40, based on guidelines of the [employer] (ACR Practice Parameter for the Performance of Screening and Diagnostic Mammography) and [employer]. For women with and elevated risk of breast cancer, please refer to the ACR Practice Parameter for specific screening recommendations. The patient will be entered into a reminder system with a target due date of 1 year for her next screening exam. Narrative 04/14/2024 4:04 PM CDT Screening Mammogram Bilateral W Bobby: 04/14/24 The study was acquired using full [...] Hx. COMPARISONS: 01/16/2022 Screening Mammogram Bilateral W Bobby BREAST TISSUE: The breasts have scattered areas of fibroglandular density. FINDINGS: There is no new suspicious finding in either breast on mammogram. us Remy Baeza MD IMG MAMMO PROCEDURES Fi nal Result * Hepatitis panel, acute (06/21/2015 2:31 PM CDT) HepBsAg NONREACT NONREACTIVE Comment: [employer]aurXP using CHAD (chemiluminescent immunoassay) technology. NONREACTIVE: IgM antibodies to Hepatitis B Surface antigen not detected. REACTIVE: IgM antibodies to Hepatitis B Surface antigen detected. Reactive results will be confirmed by neutralization testing. HBsAb (immune status) NONREACT NONREACTIVE Comment: [employer]aurXP using CHAD (chemiluminescent immunoassay) technology. NONREACTIVE: IgM antibodies to Hepatitis B Surface antibody not detected. REACTIVE: IgM antibodies to Hepatitis B Surface antibody detected. Hep B core IgM NONREACT NONREACTIVE 5 4:25 PM CDT [facility] HISTORICAL RESULTS Comment: [employer]aurXP using CHAD (chemiluminescent immunoassay) technology. NONREACTIVE: IgM antibodies to Hepatitis B Core antigen not detected. EQUIVOCAL: IgM antibodies to Hepatitis B Core antigen may or may not be present. Obtain a new specimen and retest. REACTIVE: IgM antibodies to Hepatitis B Core antigen detected. Hep A IgM NONREACT NONREACTIVE Comment: [employer]aurXP using CHAD (chemiluminescent immunoassay) technology. NONREACTIVE: IgM antibodies to Hepatitis A not detected. This does not exclude possibility of exposure to Hepatitis A or early acute infection. EQUIVOCAL:IgM antibodies to Hepatitis A may or may not be present. Suggest recollection and retest. REACTIVE: Antibodies to Hepatitis A detected. Hep C Ab NONREACT NONREACTIVE Comment: [employer]aurXP using CHAD (chemiluminescent immunoassay) [...] CDT Remy Baeza MD LAB MICROBIOLOGY - [facility] ORDERABLES Final Result [facility] HISTORICAL RESULTS from Last 3 Months or Most Recently Relevant to Health Maintenance Insurance Care Teams Floor Mechanic Relationship Specialty Start Date End Date Don Huffman MD [address] [place] [address] [address] [place] [address] PCP - General Family Medicine 07/04/21 Don Lopez, DPM [address] [place] [address] Consulting Physician Podiatry 07/22/22
--- OUTSIDE RECORDS SUMMARY | 2024-11-14 00:25 | XMS_ITS | Patient Health Summary ---
Author Organization [facility] Address [address] [facility] [place] [address] Care Team Providers Care Budder Name Role Phone Unavailable Primary Care Provider Unavailabl e Note from [facility],non-owned Affiliates and Associated Physician Practices is amultiple site organization consisting of ambulatory clinics and hospital sitesin [place], [place], [place] and [place]. This disclosure is being madepursuant to the Care Everywhere program and may not contain all information available regarding this patient. Last updated 18.[facility] Allergies No known active allergies Social History Tobacco Use Types Packs/Day Years Used Date Smoking Tobacco: Never Assessed Sex and Gender Information Value Date Recorded Sex Assigned at Not on file Gender Identity Not on file Sexual Orientation Not on file Procedures * SKIN TEST PPD - POINT OF CARE(Performed 08/04/2019) Performed for PPD screening test Results * SKIN TEST PPD - POINT OF CARE (08/04/2019 3:49 PM SILVER RECOVERY OPERATOR) PPD 0 MM Comment:negative Other MISCELLANEOUS SAMPLE S / Unknown 08/04/2019 3:49 PM SILVER RECOVERY OPERATOR Kayla Persaud ENGINEERING TECHNICAL SPECIALIST-SOLE ROUNDER LAB - POINT OF CARE ORDERABLES
--- NOTE | 2024-11-14 07:01 | WPDHPUPDATE1 ---
History and Physical Update Update Date/Time: 11/14/24 07:01 History and Physical has been reviewed, including an updated exam of the patient. There are NO changes in the patient's condition. Risks, benefits, and alternatives have been discussed and questions answered. Patient agrees to proceed with procedure.
--- NOTE | 2024-11-14 07:19 | P.PNAN_ITS ---
Anes - Initial Pre Proc Eval Procedure: Operation Date: 11/14/24 08:30 Proposed Procedures p Abdominoplasty with Upper Liposuction - Gregorio Croft MD s Bilateral Breast Mastopexy with Galaflex - Gregorio Croft MD Date/Time: 11/14/24 07:19 Surgeon: Gregorio Croft MD Pre Op Diagnosis: Skin Laxity, Breast Ptosis Patient Data Age: 49 Gender: F Height: 1.7 m Weight: 88.6 kg Allergies Allergy/AdvReac Type Severity Reaction Status Date / Time No Known Allergies Allergy Verified 11/02/24 14:45 Home Medications ?Medication ?Instructions ?Recorded ?Confirmed ?Type Lactobacillus acidophilus 10 100 mmu cells PO DAILY 09/18/24 09/18/24 History billion cell capsule (NewFlora) biotin 5 mg capsule 5 mg PO DAILY 09/18/24 09/18/24 History cholecalciferol (vitamin D3) 25 1,000 unit PO DAILY 09/18/24 09/18/24 History mcg (1,000 unit) tablet (Vitamin D3) garlic 1,000 mg capsule 1,000 mg PO DAILY 09/18/24 09/18/24 History losartan 50 mg tablet 50 mg PO DAILY 09/18/24 09/18/24 History Laboratory Tests 11/14/24 07:01 Cotinine Pending Patient hx anesthesia problems: none Family hx anesthesia problems: none Results Review: All pre-operative results and documents have been reviewed as part of the pre- operative evaluation. FOR[facility]LY [facility] Past Medical History Medical History (Updated 11/14/24 @ 07:19 by Don Fox MD) Obesity Surgical History Surgical History (Updated 11/14/24 @ 07:19 by Don Fox MD) History of lumbar fusion Social History Social History Smoking status: Never smoker Alcohol intake: current Drinks per week: 3 Living arrangements: with family Spiritual care concerns: No Anes - Eval Final PreProcedure Day of Procedure 11/14/24 07:19 Patient weight: obese Heart: regular rate and rhythm Lungs: clear to auscultation Airway: Mallampati scale class II Neurological: alert and oriented Last oral intake: >/= 8 hours ASA classification: II Emergent: no Anesthetic plan: proceed Anesthesia type and monitoring: general ETT and standard monitoring Results Review: All pre-operative results and documents have been reviewed as part of the pre- operative evaluation. Informed Consent: The patient's anesthetic plan and its attendant risks and benefits were discussed with the patient/family/POA. Questions were solicited and answers provided to the satisfaction of the patient/family/POA.
[2024-11-14 07:40] LABS: Urine Cotinine NEGATIVE
[2024-11-14] MEDS: LACTATED RINGERS 1,000 ML 30 ML IV CONT ×2 (07:45→15:25)
[2024-11-14] MEDS: TRANEXAMIC ACID 1,000MG/ISO100 1,000 MG/100 ML BAG 200 MG IVPB (08:13)
--- NOTE | 2024-11-14 08:23 | W.PM.PROC2 ---
Procedure Note - Detailed Date of Procedure 11/14/24 Pre-op Diagnosis Skin Laxity, Breast Ptosis Post-op Diagnosis Same Procedure Performed 1. Bilateral mastopexy with galaflex 2. Progressive tension abdominoplasty with suction lipectomy (including full back) Surgeon Gregorio Croft MD Anesthesia General Findings Inverted T Mastopexy Superior Pedicle Tissue removed: 2,041 grams Lipoaspirate: 3,150 cc Description of Procedure They are here today for the above procedures. Previously and again today the risks, benefits, alternatives were discussed in extensive detail. I wanted them to be very realistic about the risks involved as well as expectations. We discussed aftercare and what to monitor for. I was very upfront about the risks of wound breakdown leading to loss of skin, open wounds, and need for additional procedures with permanent abdominal deformity. We discussed DVT/PE risks and management. Made sure answered all of their questions to their satisfaction today and consent was obtained. They were marked in the preoperative holding area with their verification. The patient was taken to the operating room. Anesthesia was provided by anesthesiology. A Thao catheter was started. Posterior Placed prone on the operating room table with care taken to protect from injury. Prepped and draped in a standard sterile fashion. A surgical time-out was taken. Stab incisions were made and tumescent solution was infiltrated. Once adequate time was allowed for hemostasis a 5mm basket and 4mm usman cannula were utilized to complete suction lipectomy based on S.A.F.E. technique in multiple planes and passes. Suction lipectomy continued to result based on pre-operative planning, intra-operative observation, and rolling pinch test which were in full agreement. Breast Patient was then placed supine with care taken to protect from injury. Eleven blade was utilized to make a stab incision and infiltrated with low volume tumescent solution. The breast was tailor tacked into place. I tailor tacked the breast into position. Placed her in a sitting position. Verified the nipple-areolar location based on preoperative planning as well as intraoperative observations and measurements in full agreement. She was placed supine. I de-epithelialized the pedicle. I then de-epithelialized the inferior breast tissue to create an autoaugmentation flap based on intercostal credentialing assistant. I elevated medial and lateral tissue flaps as well for planned closure. The autoaugmentation flap was sutured to the chest wall with 2-0 PDS. Galaflex was soaking in a Betadine solution on the back table. Trimmed and sutured into place with 2-0 Vicryl. I closed along the IMF with 2-0 Stratafix. Along the vertical with 2-0 PDS. I closed around the Ashvin with 3-0 strata fix. 3-0 Monocryl along the vertical. 3-0 Stratafix along the IMF. I finally closed everything with running subcuticular 4-0 Monocryl and tissue glue. Brijjits were placed on the vertical incision. Abdomen I placed the patient in a flexed position to verify the upper and lower markings would reach. I then placed supine. A thorough abdominal examination was completed. Stab incisions were made and tumescent solution infiltrated. Stab incisions were made and tumescent solution was infiltrated. Once adequate time was allowed for hemostasis a 5mm basket and 4mm usman cannula were utilized to complete suction lipectomy based on S.A.F.E. technique in multiple planes and passes. Suction lipectomy continued to result based on pre-operative planning, intra-operative observation, and rolling pinch test which were in full agreement. A 10 blade was used to make the upper incision. I continued dissection down to the level of fascia. Elevated just what was necessary for repair of the diastasis. I then again flexed the bed to verify the upper skin flap would reach the lower markings without tension. Once verified I placed her supine once again and a 10 blade used to make the lower incision. I elevated up to level the umbilicus and left the umbilicus intact on a well-vascularized stalk. The intervening tissue was removed. A 2 mm blunt cannula with 0.5% bupivacaine was injected deep to the fascia bilaterally. I plicated the diastasis recti using 0 PDO Stratafix barbed suture. This was in 2 separate layers using 2 separate sutures as well. After the patient was flexed (below) plicated the fascia with 0 PDO Stratafix in two separate layers. The patient was flexed and starting from superior to inferior began plication using 2-0 Vicryl to obliterate all space in a standard progressive tension fashion. At the umbilicus I marked out the location of the skin and inset this with 3-0 Monocryl and 4-0 Vicryl. I continued the remainder of the plication using 2-0 Vicryl until I reached my lower planned scar line. I trimmed any excess skin of the upper flap making sure this was a tension-free closure. 15 Vasiliy drain was placed. I then approximated using a 3 point suture with 2-0 Vicryl followed by 2-0 PDO Stratafix, 3-0 Stratafix ,running subcuticular 4-0 Monocryl, and tissue glue. Fluffs, surgical bra, and an abdominal binder were placed. The patient was transferred to the bed in a flexed position. Awoken and taken to the PACU without difficulty. All instrument and sponge counts were correct at the end of the case. Estimated Blood Loss 100 Drains Yes (15 Vasiliy) Packing No Pathology None sent Complications No immediate complications Condition Stable Disposition PACU
[2024-11-14] MEDS: BUPIVACAINE/EPINEPHRINE 0.5% 50 ML VIAL 60 ML INFILTRATE (08:29)
[2024-11-14] MEDS: LACTATED RINGERS IRRIG 1,000 ML, LIDOCAINE 1% LOCAL INJ 50 ML, EPINEPHrine HCL INJ 1 MG... INFILTRATE (08:29)
[2024-11-14] MEDS: NACL 0.9% IRRIG POUR BOTTLE 900 ML, GENTAMICIN SULFATE INJ 160 MG, ceFAZolin 2 GM, POVI... IRRIGATION (08:29)
[2024-11-14] MEDS: ceFAZolin 2 GM/D5W 50 ML 2 GM/50 ML BAG IVPB (08:30)
[2024-11-14] MEDS: ceFAZolin SODIUM 1 GM VIAL 2 GM IV PUSH (12:33)
[2024-11-14] MEDS: fentaNYL CITRATE INJ (*CRX) 100 MCG/2 ML VIAL 25 MCG IV PUSH ×5 (15:46→16:41)
[2024-11-14] MEDS: oxyCODONE HCL (*CRX) 5 MG TAB IR PO (16:43)
[2024-11-14] MEDS: ONDANSETRON INJ 4 MG/2 ML VIAL IV PUSH (16:48)
[2024-11-14] MEDS: diazePAM INJ (*CRX) 10 MG/2 ML SYRINGE 2 MG IV PUSH ×2 (17:29→18:05)
== END 2024-11-14 19:00 | disposition home or self-care (01) ==
PROVIDERS: PCP Family Medicine; Visit Provider Surgery Plastic and Reconstructive Surgery
PROC: (CPT 19316; principal; 2024-11-14 08:30)
PROC: (CPT 19316; 2024-11-14 08:30)
DX: Z41.1 Encounter for cosmetic surgery (principal); L57.4 Cutis laxa senilis; N64.81 Ptosis of breast
CPT/HCPCS: 19316; 15777 ×2; 15877; 15830; 15847; 80307; A9270; J0171; J0690; J1100; J1171; J1580; J2003; J2250; J2371; J2405; J2704; J3010; J3360; J7120